=== PATIENT | male | born 1965 | race Caucasian/White ===

== ENCOUNTER 2016-10-25 19:22 | Emergency (ER) | payer MEDICARE, OTHER ==
[~2016-10-25] VITALS: Ht 182.9 cm; Wt 82.0 kg
[~2016-10-25 19:22] MED LIST: BACT800T5 PO; CEPH-460 PO; IBUP800T23 PO; METO50TA PO; OMEP20TA PO
[2016-10-25 19:24] VITALS: BP 181/104; PULSE 86; RESP 16; TEMP 97.6; O2SAT 100
[2016-10-25] MEDS ORDERED: LISINOPRIL 5 MG TAB PO ONE (20:15)
--- NOTE | 2016-10-25 20:19 | PD ---
HPI Chief Complaint: Oral / Dental Pain or Problem Time Seen by Provider: 20:13 Travel History International Travel<30 days: No Contact w/Intl Traveler<30days: No Traveled to known affect area: No History of Present Illness HPI 51-year-old white male presents emergency Department with a 2 day history of right upper dental pain. He states the pain is moderate but can be severe. He denies any fever or chills. He does mention the pain radiates to his right jaw and right ear. He denies any fever chills. No difficulty swallowing. No shortness of breath or wheezing. PFSH Past Medical History Narrative Medical Macular degeneration with legal blindness, Hypertension Hypertension: Yes Tetanus Vaccination: < 5 Years Past Surgical History Surgical History: No Previous Surgery Social History Alcohol Use: Yes Tobacco Use: Yes Allergies-Medications (Allergen,Severity, Reaction): Coded Allergies: No Known Allergies (Unverified , 10/25/16) Reported Meds & Prescriptions Reported Meds & Active Scripts Active Ibuprofen 800 Mg Tab 800 Mg PO Q6HR PRN Bactrim DS (Sulfamethoxazole-Trimethoprim) 800-160 Mg Tab 1 Tab PO BID 10 Days Keflex (Cephalexin) 500 Mg Cap 500 Mg PO Q6H 10 Days Reported Omeprazole 20 Mg Tab 20 Mg PO DAILY Metoprolol Tartrate 50 Mg Tab 50 Mg PO BID Review of Systems Except as stated in HPI: all other systems reviewed are Neg General / Constitutional: No: Fever, Chills Eyes: Positive: Blindness HENT: Positive: Dental Difficulties, Earache, No: Nosebleed Cardiovascular: No: Chest Pain or Discomfort, Irregular Rhythm Respiratory: No: Cough, Shortness of Breath Physical Exam Narrative GENERAL: Well-developed, well-nourished in no acute distress. Nontoxic appearing. HEAD: Normocephalic, atraumatic. EYES: Pupils equal round and reactive. Extraocular motions intact. No scleral icterus. No injection or drainage. ENT: TMs clear without erythema. The external auditory canals clear. Nose: clear . Posterior pharynx is pink and moist. No tonsillar edema or exudate. Uvula midline. Airway patent. The patient has diffuse periodontal disease. He has multiple dental caries. He points to his right upper maxilla as a source of pain. He is gingival erythema and edema. NECK: Trachea midline.Supple, nontender, moves head freely. No central bony tenderness or spasm. CARDIOVASCULAR: Regular rate and rhythm without murmurs, gallops, or rubs. RESPIRATORY: Clear to auscultation. Breath sounds equal bilaterally. No wheezes , rales, or rhonchi. GASTROINTESTINAL: Abdomen soft, non-tender, nondistended. No hepato-splenomegaly , or palpable masses. No guarding. EXTREMITIES: No clubbing, cyanosis, or edema. No joint tenderness, effusion, or edema noted. BACK: Nontender without deformity or crepitance. No flank tenderness. Data Data Last Documented VS Vital Signs Date Time Temp Pulse Resp B/P Pulse Ox O2 Delivery O2 Flow Rate FiO2 10/25/16 19:24 97.6 86 16 181/104 100 Orders Lisinopril (Prinivil) (10/25/16 20:15) MDM Medical Decision Making Medical Screen Exam Complete: Yes Emergency Medical Condition: Yes Medical Record Reviewed: Yes Differential Diagnosis MDM: Moderate Differential diagnoses: Dental abscess, dental caries, osteitis, cellulitis Narrative Course Patient's given 50 mg of metacarpal all by mouth, Lortab 5 and amoxicillin 500 mg by mouth. This is dental caries, dentalgia, hypertension Diagnosis Primary Impression: Dentalgia Additional Impressions: Dental caries Hypertension Qualified Code: I10 - Essential hypertension Patient Instructions: Narcotic given in the ED, General Instructions Additional Instructions: Rest. Saltwater gargles. [place] oil on cotton balls. Diclofenac and amoxicillin. Take her blood pressure medications as directed. Follow-up with a primary care doctor in 1 week. follow-up with a dentist as soon as possible. And return to the ER if any problems. Med/Other Pt SpecificInfo: Prescription(s) given Disposition: 01 DISCHARGE HOME Condition: Stable Colten Retana Oct 25, 2016 20:19
[2016-10-25] MEDS ORDERED: AMOX500C PO (20:20)
[2016-10-25] MEDS ORDERED: DICL50TA3 PO (20:20)
[2016-10-25] MEDS ORDERED: AMOXICILLIN (TRIHYDRATE) 500 MG CAP PO ONE (20:30)
[2016-10-25] MEDS ORDERED: METOPROLOL TARTRATE 50 MG TAB PO ONE (20:30)
[2016-10-25] MEDS ORDERED: ACETAMINOPHEN/HYDROcodone 325 MG/5 MG TAB PO ONE (20:30)
== END 2016-10-25 20:41 | disposition home or self-care (01) ==
LOC: NEPB 19:22
DX: K02.9 Dental caries, unspecified (principal); I10 Essential (primary) hypertension; H54.8 Legal blindness, as defined in USA; H35.30 Unspecified macular degeneration; Z72.0 Tobacco use
CPT/HCPCS: 99282

== ENCOUNTER 2017-03-31 11:55 | Emergency (ER) | payer MEDICARE, MEDICAID ==
[~2017-03-31] VITALS: Ht 182.9 cm; Wt 81.5 kg
[2017-03-31] VITALS (7 sets, daily range): BP systolic 124–214; BP diastolic 81–128; PULSE 59–65; RESP 16–20; TEMP 97.7–97.9; O2SAT 97–99
[~2017-03-31 11:55] MED LIST changes: +AMOX500C PO; -BACT800T5 PO; -CEPH-460 PO; +DICL50TA3 PO
[2017-03-31] MEDS ORDERED: SODIUM CHLORIDE 0.9% FLUSH 10 ML FLUSH IVF PRN (15:30)
[2017-03-31] MEDS ORDERED: ASPIRIN 81 MG CHEW TAB PO ONE (15:30)
[2017-03-31] MEDS ORDERED: hydrALAZINE HCL 20 MG/ML VIAL IV PUSH ONE (15:30)
--- NOTE | 2017-03-31 16:04 | RADRPT ---
EXAM DATE/TIME: 03/31/2017 15:27 [facility] COMPARISON: No previous studies available for comparison. INDICATIONS : Chest pain. MEDICAL HISTORY : Hypertension. SURGICAL HISTORY : None. ENCOUNTER: Initial ACUITY: 1 day PAIN SCORE: 0/10 LOCATION: Bilateral chest FINDINGS: A single view of the chest demonstrates the lungs to be symmetrically aerated without evidence of mas s, infiltrate or effusion. Heart size is normal. Degenerative spurring in the dorsal spine. Osseous s tructures are otherwise intact. CONCLUSION: No acute cardiopulmonary process. Tl Frazier MD on March 31, 2017 at 15:54 Board Certified Radiologist. This report was verified electronically.
[2017-03-31 16:19] LABS: AUTOMATED NEUTROPHIL # 5.4 TH/MM3 (1.8-7.7); BASOPHIL # 0.1 TH/MM3 (0-0.2); EOSINOPHIL # 0.2 TH/MM3 (0-0.4); EOSINOPHIL % 2.4 % (0.0-4.0); HEMATOCRIT 47.5 % (39.0-51.0); HEMO FLAGS DIFF FINAL; LYMPH % 23.8 % (9.0-44.0); MEAN CELL VOLUME 95.3 FL (80.0-100.0); MEAN CORPUSCULAR HEMOGLOBIN 31.8 PG (27.0-34.0); MEAN CORPUSCULAR HGB CONC 33.4 % (32.0-36.0); MONO % 9.8 % (0.0-8.0); PLATELET COUNT 276 TH/MM3 (150-450); RED BLOOD COUNT 4.98 MIL/MM3 (4.50-5.90); RED CELL DISTRIBUTION WIDTH 13.6 % (11.6-17.2); WHITE BLOOD COUNT 8.6 TH/MM3 (4.0-11.0)
[2017-03-31 16:30] LABS: APTT (PATIENT) 25.9 SEC (24.3-30.1); PROTHROMBIN TIME - PATIENT 10.8 SEC (9.8-11.6)
--- NOTE | 2017-03-31 16:42 | PD ---
HPI Chief Complaint: Chest Pain Time Seen by Provider: 15:03 Travel History International Travel<30 days: No Contact w/Intl Traveler<30days: No Traveled to known affect area: No History of Present Illness HPI Patient is a 52-year-old male presenting to emergency evaluation of chest pain. Patient states started noon today, it's midsternal with no radiation to the arm or jaw. He states his pain is a 4 out of 10 and describes it as pressure- like. He also reports increased blood pressure reading this morning, he normally takes metoprolol 50 mg twice a day, when he rechecked his blood pressure an hour later he decided to take a second dose of metoprolol grams this morning. Patient also reports that he started feeling dizzy yesterday and with the dizziness he felt nauseated. He states the dizziness was mild, as if the room is spinning and it was worse when he change positions from seated to standing. Patient has no local primary care provider, he doctor is in [place] however he lives here. [facility] Past Medical History Hypertension: Yes Medical other: Yes (legally blind, macular degeneration) Past Surgical History Surgical History: No Previous Surgery Social History Alcohol Use: Yes Tobacco Use: Yes Substance Use: No Allergies-Medications (Allergen,Severity, Reaction): Coded Allergies: No Known Allergies (Unverified , 10/25/16) Reported Meds & Prescriptions Reported Meds & Active Scripts Active Reported Omeprazole 20 Mg Tab 20 Mg PO DAILY Metoprolol Tartrate 50 Mg Tab 50 Mg PO BID Review of Systems Except as stated in HPI: all other systems reviewed are Neg Eyes: No: Blurred Vision HENT: No: Headaches, Lightheadedness Cardiovascular: Positive: Chest Pain or Discomfort, No: Dyspnea on exertion Respiratory: No: Shortness of Breath Gastrointestinal: Positive: Nausea Genitourinary: No: Dysuria Musculoskeletal: No: Myalgias Neurologic: Positive: Dizziness, No: Syncope, Change in Mentation, Sensory Disturbance Physical Exam Narrative GENERAL: Thin, well-developed, alert male. Resting comfortably in no acute distress. SKIN: Warm and dry. HEAD: Atraumatic. Normocephalic. EYES: Pupils equal and round. No scleral icterus. No injection or drainage. ENT: No nasal bleeding or discharge. Mucous membranes pink and moist. NECK: Trachea midline. No JVD. CARDIOVASCULAR: Regular rate and rhythm. RESPIRATORY: No accessory muscle use. Scattered expiratory wheezing. Breath sounds equal bilaterally. GASTROINTESTINAL: Abdomen soft, non-tender, nondistended. Hepatic and splenic margins not palpable. MUSCULOSKELETAL: Extremities without clubbing, cyanosis, or edema. No obvious deformities. NEUROLOGICAL: Awake and alert. No obvious cranial nerve deficits. Motor grossly within normal limits. Five out of 5 muscle strength in the arms and legs. Normal speech. PSYCHIATRIC: Appropriate mood and affect; insight and judgment normal. Data Data Last Documented VS Vital Signs Date Time Temp Pulse Resp B/P (MAP) Pulse Ox O2 Delivery O2 Flow Rate FiO2 03/31/17 17:06 124/81 (95) 03/31/17 16:46 97.9 65 99 03/31/17 16:17 Room Air 03/31/17 15:45 20 Orders Orders Electrocardiogram (03/31/17 15:24) Ckmb (Isoenzyme) Profile (03/31/17 15:24) Complete Blood Count With Diff (03/31/17 15:24) Comprehensive Metabolic Panel (03/31/17 15:24) Magnesium (Mg) (03/31/17 15:24) Prothrombin Time / Inr (Pt) (03/31/17 15:24) Act Partial Throm Time (Ptt) (03/31/17 15:24) Troponin I (03/31/17 15:24) Chest, Single Ap (03/31/17 15:24) Ecg Monitoring (03/31/17 15:24) Bilateral Bp Monitoring (03/31/17 15:24) Iv Access Insert/Monitor (03/31/17 15:24) Oximetry (03/31/17 15:24) Oxygen Administration (03/31/17 15:24) Aspirin Chew (Aspirin Chew) (03/31/17 15:30) Sodium Chloride 0.9% Flush (Ns Flush) (03/31/17 15:30) Hydralazine Inj (Apresoline Inj) (03/31/17 15:30) Admit Order (Ed Use Only) (03/31/17 17:13) Labs Laboratory Tests Test 03/31/17 15:40 White Blood Count 8.6 TH/MM3 Red Blood Count 4.98 MIL/MM3 Hemoglobin 15.9 GM/DL Hematocrit 47.5 % Mean Corpuscular Volume 95.3 FL Mean Corpuscular Hemoglobin 31.8 PG Mean Corpuscular Hemoglobin Concent 33.4 % Red Cell Distribution Width 13.6 % Platelet Count 276 TH/MM3 Mean Platelet Volume 7.2 FL Neutrophils (%) (Auto) 63.0 % Lymphocytes (%) (Auto) 23.8 % Monocytes (%) (Auto) 9.8 % Eosinophils (%) (Auto) 2.4 % Basophils (%) (Auto) 1.0 % Neutrophils # (Auto) 5.4 TH/MM3 Lymphocytes # (Auto) 2.0 TH/MM3 Monocytes # (Auto) 0.8 TH/MM3 Eosinophils # (Auto) 0.2 TH/MM3 Basophils # (Auto) 0.1 TH/MM3 CBC Comment DIFF FINAL Differential Comment Prothrombin Time 10.8 SEC Prothromb Time International Ratio 1.0 RATIO Activated Partial Thromboplast Time 25.9 SEC Blood Urea Nitrogen 10 MG/DL Creatinine 0.94 MG/DL Random Glucose 86 MG/DL Total Protein 7.8 GM/DL Albumin 3.9 GM/DL Calcium Level 9.2 MG/DL Magnesium Level 1.9 MG/DL Alkaline Phosphatase 88 U/L Aspartate Amino Transf (AST/SGOT) 16 U/L Alanine Aminotransferase (ALT/SGPT) 27 U/L Total Bilirubin 0.4 MG/DL Sodium Level 139 MEQ/L Potassium Level 4.3 MEQ/L Chloride Level 101 MEQ/L Carbon Dioxide Level 30.5 MEQ/L Anion Gap 8 MEQ/L Estimat Glomerular Filtration Rate 85 ML/MIN Total Creatine Kinase 88 U/L Troponin I LESS THAN 0.02 NG/ML MDM Medical Decision Making Medical Screen Exam Complete: Yes Emergency Medical Condition: Yes Interpretation(s) Laboratory Tests Test 03/31/17 15:40 White Blood Count 8.6 TH/MM3 Red Blood Count 4.98 MIL/MM3 Hemoglobin 15.9 GM/DL Hematocrit 47.5 % Mean Corpuscular Volume 95.3 FL Mean Corpuscular Hemoglobin 31.8 PG Mean Corpuscular Hemoglobin Concent 33.4 % Red Cell Distribution Width 13.6 % Platelet Count 276 TH/MM3 Mean Platelet Volume 7.2 FL Neutrophils (%) (Auto) 63.0 % Lymphocytes (%) (Auto) 23.8 % Monocytes (%) (Auto) 9.8 % Eosinophils (%) (Auto) 2.4 % Basophils (%) (Auto) 1.0 % Neutrophils # (Auto) 5.4 TH/MM3 Lymphocytes # (Auto) 2.0 TH/MM3 Monocytes # (Auto) 0.8 TH/MM3 Eosinophils # (Auto) 0.2 TH/MM3 Basophils # (Auto) 0.1 TH/MM3 CBC Comment DIFF FINAL Differential Comment Prothrombin Time 10.8 SEC Prothromb Time International Ratio 1.0 RATIO Activated Partial Thromboplast Time 25.9 SEC Blood Urea Nitrogen 10 MG/DL Creatinine 0.94 MG/DL Random Glucose 86 MG/DL Total Protein 7.8 GM/DL Albumin 3.9 GM/DL Calcium Level 9.2 MG/DL Magnesium Level 1.9 MG/DL Alkaline Phosphatase 88 U/L Aspartate Amino Transf (AST/SGOT) 16 U/L Alanine Aminotransferase (ALT/SGPT) 27 U/L Total Bilirubin 0.4 MG/DL Sodium Level 139 MEQ/L Potassium Level 4.3 MEQ/L Chloride Level 101 MEQ/L Carbon Dioxide Level 30.5 MEQ/L Anion Gap 8 MEQ/L Estimat Glomerular Filtration Rate 85 ML/MIN Total Creatine Kinase 88 U/L Troponin I LESS THAN 0.02 NG/ML Vital Signs Date Time Temp Pulse Resp B/P (MAP) Pulse Ox O2 Delivery O2 Flow Rate FiO2 03/31/17 16:17 96 Room Air 03/31/17 15:27 214/118 (150) 03/31/17 11:57 97.7 59 16 199/128 (151) 97 Room Air Differential Diagnosis ACS versus hypertensive urgency vs NSTEMI vs pleuritic pain vs other Narrative Course Patient is a 52-year-old male presenting for evaluation of chest pain. Patient states pain started today, he was significantly hypertensive on arrival with the systolic in the 220s despite taking 100 mg of metoprolol this morning. Patient is bradycardic with a heart rate in the low 50s secondary to the metoprolol. Patient reported dizziness, worse with positional changes. He is neurologically intact at this time. Labs and imaging were ordered and pending. Aspirin 324 mg chewable ordered times one dose. Hydralazine ordered for blood pressure management. Nitroglycerin withheld due to bradycardia. CBC with no acute findings Chemistry reviewed and no acute findings identified Cardiac enzymes are negative 1 set Chest x-ray shows no acute disease Patient has a history of hypertension, he is a daily tobacco user. He has not had close follow-up as his primary care provider is in [place]. For these reasons patient will be placed in the chest pain center. Diagnosis Primary Impression: Chest pain Qualified Codes: R07.9 - Chest pain, unspecified Admitting Information Admitting Physician Requests: Observation Condition: Stable Sabrina Abdullahi Mar 31, 2017 16:42
[2017-03-31 16:48] LABS: ALT (GPT) 27 U/L (12-78); ANION GAP 8 MEQ/L (5-15); AST (GOT) 16 U/L (15-37); BICARBONATE 30.5 MEQ/L (21.0-32.0); BLOOD UREA NITROGEN 10 MG/DL (7-18); CHLORIDE 101 MEQ/L (98-107); GLOMERULAR FILTRATION RATE 85 ML/MIN (>89); MAGNESIUM 1.9 MG/DL (1.5-2.5); POTASSIUM 4.3 MEQ/L (3.5-5.1); SODIUM (NA) 139 MEQ/L (136-145)
[2017-03-31 16:52] LABS: ALKALINE PHOSPHATASE 88 U/L (45-117); TOTAL BILIRUBIN ADULT 0.4 MG/DL (0.2-1.0)
[2017-03-31 17:01] LABS: CREATINE KINASE 88 U/L (39-308)
[2017-03-31] MEDS ORDERED: ONDANSETRON HCL 4 MG/2 ML VIAL IV PRN (17:45)
[2017-03-31] MEDS ORDERED: NITROGLYCERIN 0.4 MG SL 25 TABS/BTL SL PRN (17:45)
[2017-03-31] MEDS ORDERED: ACETAMINOPHEN 500 MG CPLT PO PRN (17:45)
[2017-03-31] MEDS ORDERED: SODIUM CHLORIDE 0.9% FLUSH 10 ML FLUSH IV FLUSH SCH (21:00)
[2017-04-01] MEDS ORDERED: ASPIRIN 325 MG TAB PO SCH (09:00)
--- NOTE | 2017-04-01 19:55 | EKG ---
Date Performed: 03/31/2017 Time Performed: 15:38:16 PTAGE: 52 years EKG: SINUS BRADYCARDIA MODERATE T-WAVE ABNORMALITY ABNORMAL ECG NO PREVIOUS TRACING DOCTOR: Diana Bautista Interpretating Date/Time 04/01/2017 19:55:35
== END 2017-03-31 17:45 | disposition left against medical advice (07) ==
LOC: NEPD 11:55 → NEDA 17:15 → UNDOADMOB 17:15
DX: R07.9 Chest pain, unspecified (principal); I10 Essential (primary) hypertension; R00.1 Bradycardia, unspecified; Z72.0 Tobacco use
CPT/HCPCS: 71010; 80053; 82550; 83735; 84484; 85025; 85610; 85730; 93005; 96374; 99285; J0360